=== PATIENT | female | born 1955 | race Caucasian/White ===

== ENCOUNTER 2020-12-12 05:25 | Emergency (ER) | payer MEDICARE ==
[~2020-12-12 05:25] MED LIST: ASPIRIN CHEWABL81 MG PO; KEPPRA500 MG PO; LACTULOSE10 G/15 ML PO; LOVENOX80 MG/0.1 SC
[2020-12-12 06:24] LABS: BASOPHIL 0.4 % (0-2); EOSINOPHIL 0.1 % (0-5); HCT 39.7 % (37.0-47.0); HGB 12.8 g/dl (12.5-16.0); LYMPHOCYTE 4.5 % (15-48); MCH 27.2 pg (25.0-31.0); MCHC 32.2 g/dL (32.0-36.0); MCV 84.5 fL (78.0-100.0); MONOCYTE 6.5 % (0-12); MPV 11.8 fL (6.0-9.5); NEUTROPHIL 87.8 % (41-80); NRBC 0; PLT 270 K/uL (150-400); RDW 21.9 % (11.5-14.0); WBC 10.8 K/uL (4.0-10.5)
[2020-12-12 06:45] LABS: ALBUMIN 2.8 g/dL (3.4-5.0); BILIRUBIN - TOTAL 5.7 mg/dL (0.2-1.0); GLOBULIN (CALCULATION) 3.9 g/dL; POTASSIUM 4.4 mmol/L (3.5-5.1); TOTAL PROTEIN 6.7 g/dL (6.4-8.2)
[2020-12-12 06:48] LABS: INR 1.44 (0.9-1.2); PROTHROMBIN TIME 16.7 SECONDS (11.4-13.6)
[2020-12-12 07:05] LABS: BILIRUBIN 3+ mg/dL (NEGATIVE); BLOOD NEGATIVE Ery/uL (NEGATIVE); GLUCOSE (U) NORMAL (NORMAL); LEUKOCYTES NEGATIVE Leu/uL (NEGATIVE); NITRITE POSITIVE (NEGATIVE); PROTEIN TRACE (LOW) mg/dL (NEGATIVE); pH 5.5 (5.0-9.0)
[2020-12-12 07:06] LABS: CLARITY TURBID (CLEAR); COLOR AMBER (YELLOW)
[2020-12-12 07:31] LABS: AMORPHOUS URATES CRYSTALS LARGE
== END 2020-12-12 14:50 | disposition other institution (70) ==
LOC: FER 05:25
PROVIDERS: Emergency Medicine
DX: R10.84 Generalized abdominal pain (principal); R11.2 Nausea with vomiting, unspecified; E80.6 Other disorders of bilirubin metabolism; R94.31 Abnormal electrocardiogram [ECG] [EKG]; R19.7 Diarrhea, unspecified; K82.8 Other specified diseases of gallbladder; Z88.8 Allergy status to other drugs, medicaments and biological substances; Z20.822 Contact with and (suspected) exposure to COVID-19
CPT/HCPCS: 36415; 71045; 76705; 80053; 81001; 83690; 83735; 85025; 85610; 85730; 93005; G0480; J2405; J7030; Q9967; U0002

== ENCOUNTER 2021-01-23 09:41 | Emergency (ER) | payer MEDICARE ==
[2021-01-23 11:17] LABS: BASOPHIL 0.9 % (0-2); EOSINOPHIL 2.3 % (0-5); HGB 14.4 g/dl (12.5-16.0); LYMPHOCYTE 10.6 % (15-48); MCH 28.8 pg (25.0-31.0); MCHC 33.5 g/dL (32.0-36.0); MONOCYTE 8.5 % (0-12); MPV 11.3 fL (6.0-9.5); NEUTROPHIL 77.3 % (41-80); NRBC 0; PLT 473 K/uL (150-400); RDW 18.1 % (11.5-14.0)
[2021-01-23 11:22] LABS: INR 1.41 (0.9-1.2); PROTHROMBIN TIME 16.4 SECONDS (11.4-13.6); PTT 37.6 SECONDS (22.2-34.7)
[2021-01-23 11:33] LABS: IRON % SATURATION 8.4 %SAT (20-50)
[2021-01-23 11:36] LABS: PRO-BNP 325 pg/mL (<125)
[2021-01-23 11:56] LABS: LACTIC ACID 1.4 mmol/L (0.4-1.9)
[2021-01-23 12:07] LABS: ALBUMIN 3.3 g/dL (3.4-5.0); BILIRUBIN - TOTAL 1.7 mg/dL (0.2-1.0); BUN/CREAT RATIO (CALC) 19.4 RATIO; C-REACTIVE PROTEIN 3.9 mg/dL (<=0.90); CREATININE 1.7 mg/dL (0.51-0.95); FT4 (FREE T4) 2.2 ng/dL (0.76-1.46); GLOBULIN (CALCULATION) 3.5 g/dL; MAGNESIUM 2.1 mg/dL (1.8-2.4); POTASSIUM 5.4 mmol/L (3.5-5.1); TOTAL PROTEIN 6.8 g/dL (6.4-8.2)
[2021-01-23 12:13] LABS: BILIRUBIN NEGATIVE (NEGATIVE); BLOOD NEGATIVE Ery/uL (NEGATIVE); CLARITY CLEAR (CLEAR); COLOR YELLOW (YELLOW); GLUCOSE (U) NORMAL (NORMAL); LEUKOCYTES NEGATIVE Leu/uL (NEGATIVE); NITRITE NEGATIVE (NEGATIVE); PROTEIN NEGATIVE (NEGATIVE); SPECIFIC GRAVITY 1.025 (1.001-1.030); UROBILINOGEN 0.2 mg/dL (0.2-1.0); pH 5.5 (5.0-9.0)
[2021-01-23] MEDS ORDERED: ATARAX25 MG PO (13:31)
== END 2021-01-23 16:33 | disposition other institution (70) ==
LOC: FER 09:41
PROVIDERS: Emergency Medicine
DX: K72.90 Hepatic failure, unspecified without coma (principal); K74.60 Unspecified cirrhosis of liver; R19.7 Diarrhea, unspecified; Z86.718 Personal history of other venous thrombosis and embolism; Z20.822 Contact with and (suspected) exposure to COVID-19
CPT/HCPCS: 36415; 71045; 80053; 81003; 82140; 82550; 82728; 83540; 83550; 83605; 83615; 83690; 83735; 83880; 84145; 84439; 84443; 84484; 85025; 85610; 85730; 86140; 93005; U0002